=== PATIENT | female | born 1955 ===

== ENCOUNTER 2020-11-13 11:45 | Inpatient (IN) | payer OTHER ==
[~2020-11-13] VITALS: Ht 180.3 cm; Wt 61.2 kg
[2020-11-13] MEDS ORDERED: ONDANSETRON PO (15:19)
[2020-11-13] MEDS ORDERED: PROTONIX40 M1 PO (15:20)
[2020-11-13] MEDS ORDERED: [UNRECOGNIZED DRUG - OTHER] (15:21)
[2020-11-20] MEDS ORDERED: ONDANSETRON HCL4 MG (08:54)
[2020-11-20] MEDS ORDERED: FENTANYL (08:54)
[2020-11-20] MEDS ORDERED: OMEPRAZOLE40 MG (08:55)
[2020-11-20] MEDS ORDERED: DICYCLOMINE HCL20 MG (08:55)
[2020-11-23] MEDS ORDERED: PERCOCET 5-3251 EACH PO ×2 (16:15)
[2020-11-23] MEDS ORDERED: OMEPRAZOLE20 MG PO ×2 (16:16)
[2020-12-25] MEDS ORDERED: ALTACE10 MG (14:59)
== END 2020-11-23 16:47 | disposition home or self-care (01) | DRG 330 ==
LOC: SURH 11-20 07:00 → O/R 11-20 07:12 → SURH 11-20 07:12
PROVIDERS: ADMIT Surgery; ATTEND Surgery
PROC: 07BB4ZZ Excision of Mesenteric Lymphatic, Percutaneous Endoscopic Approach (ICD-10-PCS; 2020-11-20)
PROC: 0DTF4ZZ Resection of Right Large Intestine, Percutaneous Endoscopic Approach (ICD-10-PCS; principal; 2020-11-20 07:00)
DX: C18.2 Malignant neoplasm of ascending colon (principal); C78.6 Secondary malignant neoplasm of retroperitoneum and peritoneum; K58.1 Irritable bowel syndrome with constipation; K57.30 Diverticulosis of large intestine without perforation or abscess without bleeding; R59.0 Localized enlarged lymph nodes

== ENCOUNTER 2020-11-20 06:42 | Outpatient (CLI) | payer OTHER ==
[~2020-11-20 06:42] MED LIST: ONDANSETRON PO; PROTONIX40 M1 PO; [UNRECOGNIZED DRUG - OTHER]
[2020-11-20] MEDS ORDERED: FENTANYL (08:54)
[2020-11-20] MEDS ORDERED: ONDANSETRON HCL4 MG (08:54)
[2020-11-20] MEDS ORDERED: OMEPRAZOLE40 MG (08:55)
[2020-11-20] MEDS ORDERED: DICYCLOMINE HCL20 MG (08:55)
[2020-11-23] MEDS ORDERED: PERCOCET 5-3251 EACH PO (16:15)
[2020-11-23] MEDS ORDERED: OMEPRAZOLE20 MG PO (16:16)
== END 2020-11-20 06:44 | disposition home or self-care (01) ==
LOC: LAB 06:42
PROVIDERS: ATTEND Surgery
DX: K57.30 Diverticulosis of large intestine without perforation or abscess without bleeding (principal); K58.1 Irritable bowel syndrome with constipation; C18.0 Malignant neoplasm of cecum; R59.0 Localized enlarged lymph nodes

== ENCOUNTER 2020-12-30 05:52 | Day surgery (SDC) | payer OTHER ==
[~2020-12-30 05:52] MED LIST changes: +ALTACE10 MG; +DICYCLOMINE HCL20 MG; +FENTANYL; +OMEPRAZOLE20 MG PO; +OMEPRAZOLE40 MG; +ONDANSETRON HCL4 MG; +PERCOCET 5-3251 EACH PO
[2020-12-30] MEDS ORDERED: ULTRAM50 MG PO ×2 (11:07)
== END 2020-12-30 12:10 | disposition home or self-care (01) ==
LOC: CIR.AMB 05:52
PROVIDERS: ATTEND Surgery
DX: C18.0 Malignant neoplasm of cecum (principal); Z20.822 Contact with and (suspected) exposure to COVID-19
CPT/HCPCS: 36561; C1751

== ENCOUNTER 2022-09-07 12:15 | Inpatient (IN) | payer OTHER ==
[~2022-09-07] VITALS: Ht 154.9 cm; Wt 56.2 kg
[~2022-09-07 12:15] MED LIST changes: +ULTRAM50 MG PO
[2022-09-07] MEDS ORDERED: NEURONTIN600 M1 PO (13:46)
[2022-09-07] MEDS ORDERED: NEURONTIN (13:46)
[2022-09-07] MEDS ORDERED: NEURONTIN300 MG PO (13:46)
== END 2022-09-12 12:08 | disposition home or self-care (01) | DRG 737 ==
LOC: SURG 09-09 07:00 → O/R 09-09 07:10 → OB/GYN 09-09 07:10 → SURG 09-09 12:15 → OB/GYN 09-09 15:05
PROVIDERS: ADMIT Specialist; ATTEND Specialist
PROC: 0DBU0ZZ Excision of Omentum, Open Approach (ICD-10-PCS; 2022-09-09)
PROC: 0UB10ZZ Excision of Left Ovary, Open Approach (ICD-10-PCS; principal; 2022-09-09 07:00)
DX: C79.62 Secondary malignant neoplasm of left ovary (principal); C18.0 Malignant neoplasm of cecum; C78.6 Secondary malignant neoplasm of retroperitoneum and peritoneum; Z20.822 Contact with and (suspected) exposure to COVID-19